=== PATIENT | female | born 1995 | race Caucasian/White ===

== ENCOUNTER 2020-04-24 10:44 | Inpatient (IN) | payer MEDICAID ==
--- NOTE | 2020-04-24 10:57 | ER Document Report ---
ED Medical Screen (RME) - General Chief Complaint: Abdominal Pain Stated Complaint: ABDOMINAL PAIN Time Seen by Provider: 04/24/20 10:53 Mode of Arrival: Ambulatory Information source: Patient Notes: 25-year-old female presents to ED for complaint of abdominal pain all the time. She states she has a history of ulcerative colitis. She states it hurts all the time but she does not have insurance and has not been able to follow-up with providers. She states she was diagnosed when she was 20 years old. At this time she does have a very high heart rate of 147. We will get EKG cardiac enz ymes as well as lipase chemistry and she will be seen by another provider. I have greeted and performed a rapid initial assessment of this patient. A comprehensive ED assessment and evaluation of the patient, analysis of test results and completion of medical decision making process will be conducted by an additional ED providers. TRAVEL OUTSIDE OF THE [place] IN LAST 30 DAYS: No - Related Data Allergies/Adverse Reactions: hydrocodone Adverse Reaction (Verified 04/24/20 18:47) Past Medical History - Past Medical History Cardiac Medical History: Denies: Hx Coronary Artery Disease, Hx Heart Attack, Hx Hypertension Pulmonary Medical History: Denies: Hx Asthma, Hx Bronchitis, Hx COPD, Hx Pneumonia, Hx Tuberculosis Neurological Medical History: Reports: Hx Migraine. Denies: Hx Cerebrovascular Accident, Hx Seizures Musculoskeltal Medical History: Denies Hx Arthritis Past Surgical History: Reports: Hx Oral Surgery, Hx Tonsillectomy. Denies: Hx Hysterectomy - Immunizations Immunizations up to date: Yes Hx Diphtheria, Pertussis, Tetanus Vaccination: Yes Physical Exam - Vital signs Vitals: Temp Pulse Resp BP Pulse Ox 101.2 F H 150 H 18 118/71 97 04/24/20 10:53 04/24/20 10:53 04/24/20 10:53 04/24/20 10:53 04/24/20 10:53 Course - Vital Signs Vital signs: Temp Pulse Resp BP Pulse Ox 98.5 F 96 16 109/65 100 04/24/20 19:38 04/24/20 19:38 04/24/20 19:38 04/24/20 19:38 04/24/20 19:38 - Laboratory Results Result Diagrams: 04/24/20 11:11 04/24/20 11:11 Laboratory Results Interpreted: 04/24/20 04/24/20 04/24/20 11:11 11:11 11:11 WBC 21.4 H Hgb 11.6 L Hct 35.9 L MCV 75 L MCH 24.2 L RDW 14.7 H Plt Count 566 H Seg Neuts % (Manual) 87 H Lymphocytes % (Manual) 6 L Abs Neuts (Manual) 19.5 H APTT 36.4 H AST 37 H Alkaline Phosphatase 134 H C-Reactive Protein Ur Leukocyte Esterase 04/24/20 04/24/20 11:11 11:20 WBC Hgb Hct MCV MCH RDW Plt Count Seg Neuts % (Manual) Lymphocytes % (Manual) Abs Neuts (Manual) APTT AST Alkaline Phosphatase C-Reactive Protein 53.1 H Ur Leukocyte Esterase TRACE H Doctor's Discharge - Discharge Clinical Impression: Ulcerative colitis Condition: Fair Disposition: ADMITTED INPATIENT
[2020-04-24] MEDS ORDERED: HYDROMORPHONE HCL INJ/PF 2 MG/ML AMPULE IV ONE ×2 (11:07→13:40)
[2020-04-24] MEDS ORDERED: ONDANSETRON HCL INJ/PF 4 MG/2 ML SDV IV ONE (11:07)
--- NOTE | 2020-04-24 11:09 | ER Document Report ---
ED General - General Chief Complaint: Abdominal Pain Stated Complaint: ABDOMINAL PAIN Time Seen by Provider: 04/24/20 10:53 Primary Care Provider: ROSA AC DO [NO LOCAL MD] - Follow up as needed Mode of Arrival: Ambulatory Notes: 25-year-old female presents with abdominal pain diffuse, worsening for the last couple days but intermittently for about a month in the setting of a known ul cerative colitis flare which she self diagnosed a month ago in the setting of not having a doctor started home prednisone got slightly better but is now not any better and worse. Increase to frequency, liquidity and scant blood. No rectal pain or tenesmus. Positive chills at home. Not eating much. TRAVEL OUTSIDE OF THE [place] IN LAST 30 DAYS: No - Related Data Allergies/Adverse Reactions: No Known Allergies Allergy (Verified 08/16/14 11:15) Past Medical History - General Information source: Patient - Social History Smoking Status: Never Smoker Family History: Reviewed & Not Pertinent - Past Medical History Cardiac Medical History: Denies: Hx Coronary Artery Disease, Hx Heart Attack, Hx Hypertension Pulmonary Medical History: Denies: Hx Asthma, Hx Bronchitis, Hx COPD, Hx Pneumonia, Hx Tuberculosis Neurological Medical History: Reports: Hx Migraine. Denies: Hx Cerebrovascular Accident, Hx Seizures Musculoskeletal Medical History: Denies Hx Arthritis Past Surgical History: Reports: Hx Oral Surgery, Hx Tonsillectomy. Denies: Hx Hysterectomy - Immunizations Immunizations up to date: Yes Hx Diphtheria, Pertussis, Tetanus Vaccination: Yes Physical Exam - Vital signs Vitals: Temp Pulse Resp BP Pulse Ox 101.2 F H 150 H 18 118/71 97 04/24/20 10:53 04/24/20 10:53 04/24/20 10:53 04/24/20 10:53 04/24/20 10:53 Course - Re-evaluation Re-evalutation: 04/24/20 11:13 Patient with uncontrolled ulcerative colitis presents with abdominal pain nausea anorexia tachycardia and fever most concerning for ulcerative colitis flare plus or minus infectious complication like an abscess or diffuse colitis Will start on antibiotics given that she is meeting sepsis criteria, will give fluid bolus pain meds Zofran check labs and do CT 04/24/20 14:37 Heart rate down with fluids. Has received antibiotics. Heart rate now 120 stil l in pain. Given second dose of Dilaudid. Labs show leukocytosis with left shift, she is on steroids but also probably acutely inflamed She will receive a second of the pain meds. Her CT is not exciting in terms of cause of her pain so we went back and discussed actually typically she has no high risk activity no dyspareunia no vaginal discharge so I think that this is not coming from PID. Awaiting urinalysis but has been covered in case is a UTI Discussed with Dr. Holly for admission. She asked that I page Dr. Avendaño given no he is not on-call but accepted the admission anyway I page Dr. Salas and never heard back. - Vital Signs Vital signs: Temp Pulse Resp BP Pulse Ox 99.2 F 150 H 23 H 106/64 99 04/24/20 11:47 04/24/20 10:53 04/24/20 14:01 04/24/20 14:00 04/24/20 14:01 - Laboratory Results Result Diagrams: 04/24/20 11:11 04/24/20 11:11 Laboratory Results Interpreted: 04/24/20 04/24/20 04/24/20 11:11 11:11 11:11 WBC 21.4 H Hgb 11.6 L Hct 35.9 L MCV 75 L MCH 24.2 L RDW 14.7 H Plt Count 566 H Seg Neuts % (Manual) 87 H Lymphocytes % (Manual) 6 L Abs Neuts (Manual) 19.5 H APTT 36.4 H AST 37 H Alkaline Phosphatase 134 H Critical Laboratory Results Reviewed: No Critical Results - Radiology Results Critical Radiology Results Reviewed: No Critical Results Critical Care Note - Critical Care Note Total time excluding time spent on procedures (mins): 32 Comments: The above patient is critically ill. Not including procedures, but including direct re-evaluations, speaking with patient and/or consultants, interpreting results, and documenting, I spent the total amount of minute listed listed above on critical care time Discharge - Discharge Clinical Impression: Ulcerative colitis Qualifiers: Ulcerative colitis location: unspecified ulcerative colitis location Digestive disease complication type: without complication Qualified Code(s): K51.90 - Ulcerative colitis, unspecified, without complications Condition: Fair Disposition: ADMITTED INPATIENT Admitting Provider: Zuly (Hospitalist) Unit Admitted: Medical Floor Forms: Return to Work Referrals: ROSA AC DO [NO LOCAL MD] - Follow up as needed
[2020-04-24] MEDS ORDERED: RINGERS SOLUTION,LACTATED 1,000 ML IV PRN (11:10)
[2020-04-24] MEDS ORDERED: PIPERACILLIN/TAZOBACTAM 3.375 GM VIAL IV ONE (11:13)
[2020-04-24 11:31] LABS: HEMATOCRIT 35.9 % (36.0-47.0); HEMOGLOBIN 11.6 g/dL (12.0-15.5); MEAN CORPUSCULAR HEMOGLOBIN 24.2 pg (27.0-33.4); MEAN CORPUSCULAR HGB CONC 32.2 g/dL (32.0-36.0); MEAN CORPUSCULAR VOLUME 75 fl (80-97); PLATELET COUNT 566 10^3/uL (150-450); RED BLOOD COUNT 4.77 10^6/uL (3.72-5.28); RED CELL DISTRIBUTION WIDTH 14.7 % (11.5-14.0); WHITE BLOOD COUNT 21.4 10^3/uL (4.0-10.5)
[2020-04-24 11:39] LABS: INTERNATIONAL RATION (INR) 1.04; PROTHROMBIN TIME 13.8 SEC (11.4-15.4)
[2020-04-24 11:40] LABS: PARTIAL THROMBOPLASTIN TIME 36.4 SEC (23.5-35.8)
[2020-04-24 11:44] LABS: ALBUMIN 4.8 g/dL (3.5-5.0); ALKALINE PHOSPHATASE 134 U/L (38-126); ANION GAP 11 (5-19); ASPARTATE AMINO TRANSFERASE 37 U/L (14-36); BILIRUBIN,DIRECT 0.2 mg/dL (0.0-0.4); BILIRUBIN,TOTAL 0.6 mg/dL (0.2-1.3); BLOOD UREA NITROGEN 12 mg/dL (7-20); CALCIUM 10.2 mg/dL (8.4-10.2); CARBON DIOXIDE 24 mmol/L (22-30); CHLORIDE 102 mmol/L (98-107); CREATINE KINASE 47 U/L (30-135); GLUCOSE 106 mg/dL (75-110); POTASSIUM 4.1 mmol/L (3.6-5.0); TOTAL PROTEIN 8.2 g/dL (6.3-8.2)
--- NOTE | 2020-04-24 12:00 | RADIOLOGY REPORT (SQ) ---
EXAM DESCRIPTION: CHEST SINGLE VIEW IMAGES COMPLETED DATE/TIME: 04/24/2020 11:53 am REASON FOR STUDY: Palpitations COMPARISON: 10/04/2013 EXAM PARAMETERS: NUMBER OF VIEWS: One view. TECHNIQUE: Single frontal radiographic view of the chest acquired. RADIATION DOSE: NA LIMITATIONS: None. FINDINGS: LUNGS AND PLEURA: No opacities, masses or pneumothorax. No pleural effusion. MEDIASTINUM AND HILAR STRUCTURES: No masses. Contour normal. HEART AND VASCULAR STRUCTURES: Heart normal in size. Normal vasculature. BONES: No acute findings. HARDWARE: None in the chest. OTHER: No other significant finding. IMPRESSION: NO ACUTE RADIOGRAPHIC FINDING IN THE CHEST. TECHNICAL DOCUMENTATION: JOB ID: [id number] 2010 [employer]- All Rights Reserved Reading location - IP/workstation name: [email or web address]
[2020-04-24 12:03] LABS: ABSOLUTE LYMPHOCYTES# (MANUAL) 1.3 10^3/uL (0.5-4.7); ABSOLUTE MONOCYTES # (MANUAL) 0.6 10^3/uL (0.1-1.4); BAND NEUTROPHILS % (MANUAL) 4 % (3-5); BASOPHILS % (MANUAL) 0 % (0-2); EOSINOPHILS % (MANUAL) 0 % (0-6); LYMPHOCYTES % (MANUAL) 6 % (13-45); MONOCYTES % (MANUAL) 3 % (3-13); SEGMENTED NEUTROPHILS % (MAN) 87 % (42-78); TOTAL CELLS COUNTED 100
[2020-04-24 12:04] LABS: PLATELET COMMENT INCREASED; RBC MORPHOLOGY COMMENT NORMO-CYTIC/CHROMIC
--- NOTE | 2020-04-24 12:56 | RADIOLOGY REPORT (SQ) ---
EXAM DESCRIPTION: CT ABD/PELVIS WITH IV ONLY IMAGES COMPLETED DATE/TIME: 04/24/2020 12:39 pm REASON FOR STUDY: ULCERATIVE COLITIS COMPARISON: 05/23/2014 TECHNIQUE: CT scan of the abdomen and pelvis performed using helical scanning technique with dynamic intravenous contrast injection. No oral contrast. Images reviewed with lung, soft tissue, and bone windows. Reconstructed coronal and sagittal MPR images reviewed. Delayed images for evaluation of the urinary system also acquired. All images stored on PACS. All CT scanners at this facility use dose modulation, iterative reconstruction, and/or weight based d osing when appropriate to reduce radiation dose to as low as reasonably achievable (ALARA). [facility]: Dose Right [facility]: CareDose [facility]: Dose Right [facility]: Teradose 4D [facility]: [place] CONTRAST TYPE AND DOSE: contrast/concentration: Isovue 350.00 mmol/ml; Total Contrast Delivered: 71. 0 ml; Total Saline Delivered: 32.6 ml RENAL FUNCTION: BUN 12; creatinine 1.08 RADIATION DOSE: CT Rad equipment meets quality standard of care and radiation dose reduction techniq ues were employed. CTDIvol: NaN - NaN mGy. DLP: 0 mGy-cm.. LIMITATIONS: None. FINDINGS: LOWER CHEST: No significant findings. No nodules or infiltrates. LIVER: Normal size. No masses. No dilated ducts. SPLEEN: Normal size. No focal lesions. PANCREAS: No masses. No significant calcifications. No adjacent inflammation or peripancreatic fluid collections. Pancreatic duct not dilated. GALLBLADDER: Surgically absent. ADRENAL GLANDS: No significant masses or asymmetry. RIGHT KIDNEY AND URETER: No solid masses. No significant calcifications. No hydronephrosis or hyd roureter. LEFT KIDNEY AND URETER: No solid masses. No significant calcifications. No hydronephrosis or hydr oureter. AORTA AND VESSELS: No aneurysm. No dissection. Renal arteries, SMA, celiac without stenosis. RETROPERITONEUM: No retroperitoneal adenopathy, hemorrhage or masses. BOWEL AND PERITONEAL CAVITY: No masses or inflammatory changes. No free fluid or peritoneal masses. APPENDIX: Normal. PELVIS: No mass. Scant physiologic free fluid is seen within the pelvic cul-de-sac. The uterus is r etroverted. The ovaries appear somewhat prominent noting a 2.9 cm ovoid focus within the left ovary demonstrating intermediate Hounsfield units, likely on the basis of a hemorrhagic cyst. ABDOMINAL WALL: No masses. No hernias. BONES: No significant or acute findings. OTHER: No other significant finding. IMPRESSION: No evidence of acute intra-abdominal infectious/inflammatory process. Incidental findin g a 2.9 cm ovoid focus within the left ovary, likely on the basis of an hemorrhagic cyst. Prominent appearance of the right ovary. Recommend dedicated pelvic ultrasound for improved characterization. TECHNICAL DOCUMENTATION: JOB ID: [id number] Quality ID # [id number]: Final reports with documentation of one or more dose reduction techniques (e.g., Au tomated exposure control, adjustment of the mA and/or kV according to patient size, use of iterative reconstruction technique) 2010 [employer]- All Rights Reserved Reading location - IP/workstation name: [email or web address]
[2020-04-24] MEDS ORDERED: RINGERS SOLUTION,LACTATED 1,000 ML IV ONE (13:41)
[2020-04-24 14:56] LABS: APPEARANCE,URINE SLIGHTLY HAZY; COLOR,URINE YELLOW
[2020-04-24 14:57] LABS: ADD MANUAL MICROSCOPIC YES; BILIRUBIN,URINE NEGATIVE (NEGATIVE); GLUCOSE, URINE NEGATIVE (NEGATIVE); KETONES,URINE NEGATIVE (NEGATIVE); LEUKOCYTE ESTERASE,URINE TRACE (NEGATIVE); NITRITE,URINE NEGATIVE (NEGATIVE); PROTEIN,URINE NEGATIVE (NEGATIVE); URINE SPECIFIC GRAVITY 1.014; UROBILINOGEN,URINE NEGATIVE mg/dL (<2.0)
[2020-04-24 14:58] LABS: RBC,URINE NONE SEEN /HPF; WBC,URINE 20-30 /HPF
[2020-04-24] MEDS ORDERED: ACETAMINOPHEN 325 MG TABLET PO PRN (15:57)
[2020-04-24] MEDS ORDERED: IPRATROPIUM/ALBUTEROL 0.5-2.5 MG/3 ML AMPUL NEB PRN (15:57)
[2020-04-24] MEDS: ONDANSETRON HCL INJ/PF 4 MG/2 ML SDV IV PRN ×2 (16:25→23:11)
--- NOTE | 2020-04-24 16:27 | PDOC H&P ---
History of Present Illness Admission Date/PCP: 04/24/20 14:55 Patient complains of: diarrhea, nausea and vomiting History of Present Illness: CAROLYN FERNANDEZ is a 25 year old female Past Medical History Cardiac Medical History: Denies: Coronary Artery Disease, Myocardial Infarction, Hypertension Pulmonary Medical History: Denies: Asthma, Bronchitis, Chronic Obstructive Pulmonary Disease (COPD), Pneumonia, Tuberculosis Neurological Medical History: Reports: Migraine Denies: Seizures GI Medical History: Reports: Crohn's Disease, Hiatal Hernia Musculoskeltal Medical History: Denies: Arthritis Psychiatric Medical History: Denies: None Hematology: Denies: Anemia Past Surgical History Past Surgical History: Reports: Cholecystectomy, Tonsillectomy Denies: Hysterectomy Social History Information Source: Patient Lives with: Family Smoking Status: Never Smoker Frequency of Alcohol Use: None Hx Recreational Drug Use: No Hx Prescription Drug Abuse: No Family History Family History: DM Parental Family History Reviewed: Yes Children Family History Reviewed: Yes Sibling(s) Family History Reviewed.: Yes Medication/Allergy Home Medications: Cholecalciferol (Vitamin D3) [Vitamin D3 1000 Unit Tablet] 1,000 unit PO DAILY 04/24/20 Iron,Carbonyl/Ascorbic Acid [Iron 100-Vitamin C Tablet] 1 tab PO DAILY 04/24/20 Loratadine [Claritin 10 mg Tablet] 10 mg PO DAILY 04/24/20 Allergies/Adverse Reactions: No Known Allergies Allergy (Verified 08/16/14 11:15) Review of Systems Constitutional: PRESENT: fever(s), weakness Eyes: ABSENT: visual disturbances Ears: ABSENT: hearing changes Nose, Mouth, and Throat: ABSENT: mouth pain, sore throat Cardiovascular: ABSENT: chest pain, dyspnea on exertion, edema Respiratory: ABSENT: cough, dyspnea Gastrointestinal: PRESENT: bloating, diarrhea, hematochezia, nausea, vomiting Genitourinary: ABSENT: dysuria Musculoskeletal: PRESENT: other - joint pains Neurological: ABSENT: numbness, paresthesias Psychiatric: ABSENT: hallucinations Physical Exam Vital Signs: Temp Pulse Resp BP Pulse Ox 98 F 150 H 19 106/72 100 04/24/20 15:39 04/24/20 10:53 04/24/20 15:39 04/24/20 15:39 04/24/20 15:39 Intake & Output 04/23/20 04/24/20 04/25/20 06:59 06:59 06:59 Intake Total 2000 Balance 1999 Weight 76.1 kg General appearance: PRESENT: no acute distress, cooperative Head exam: PRESENT: atraumatic, normocephalic Eye exam: PRESENT: EOMI, PERRLA Mouth exam: PRESENT: moist Neck exam: PRESENT: full ROM Respiratory exam: PRESENT: clear to auscultation rowdy, symmetrical, unlabored Cardiovascular exam: PRESENT: RRR, +S1, +S2 Pulses: PRESENT: +2 pedal pulses bilateral Vascular exam: PRESENT: normal capillary refill GI/Abdominal exam: PRESENT: normal bowel sounds, soft, tenderness. ABSENT: rebound Rectal exam: PRESENT: bloody stool Extremities exam: PRESENT: full ROM. ABSENT: joint swelling, pedal edema Musculoskeletal exam: PRESENT: full ROM Neurological exam: PRESENT: alert, awake, oriented to person, oriented to place, oriented to time, oriented to situation Skin exam: PRESENT: normal color Results Laboratory Results: 04/24/20 11:11 04/24/20 11:11 04/24/20 04/24/20 04/24/20 11:11 11:11 11:11 WBC 21.4 H RBC 4.77 Hgb 11.6 L Hct 35.9 L MCV 75 L MCH 24.2 L MCHC 32.2 RDW 14.7 H Plt Count 566 H Seg Neutrophils % Not Reportable Sodium 137.3 Potassium 4.1 Chloride 102 Carbon Dioxide 24 Anion Gap 11 BUN 12 Creatinine 1.08 Est GFR ( Amer) > 60 Glucose 106 Lactic Acid Calcium 10.2 Magnesium 1.8 Total Bilirubin 0.6 AST 37 H Alkaline Phosphatase 134 H Total Protein 8.2 Albumin 4.8 Lipase 46.3 TSH 1.00 Serum HCG, Qual Urine Color Urine Appearance Urine pH Ur Specific [place] Urine Protein Urine Glucose (UA) Urine Ketones Urine Blood Urine Nitrite Ur Leukocyte Esterase Ur Squamous Epith Cells 04/24/20 04/24/20 04/24/20 11:11 11:20 11:20 WBC RBC Hgb Hct MCV MCH MCHC RDW Plt Count Seg Neutrophils % Sodium Potassium Chloride Carbon Dioxide Anion Gap BUN Creatinine Est GFR ( Amer) Glucose Lactic Acid 0.8 Calcium Magnesium Total Bilirubin AST Alkaline Phosphatase Total Protein Albumin Lipase TSH Cancelled Serum HCG, Qual NEGATIVE Urine Color Urine Appearance Urine pH Ur Specific [place] Urine Protein Urine Glucose (UA) Urine Ketones Urine Blood Urine Nitrite Ur Leukocyte Esterase Ur Squamous Epith Cells 04/24/20 11:20 WBC RBC Hgb Hct MCV MCH MCHC RDW Plt Count Seg Neutrophils % Sodium Potassium Chloride Carbon Dioxide Anion Gap BUN Creatinine Est GFR ( Amer) Glucose Lactic Acid Calcium Magnesium Total Bilirubin AST Alkaline Phosphatase Total Protein Albumin Lipase TSH Serum HCG, Qual Urine Color YELLOW Urine Appearance SLIGHTLY HAZY Urine pH 5.0 Ur Specific [place] 1.014 Urine Protein NEGATIVE Urine Glucose (UA) NEGATIVE Urine Ketones NEGATIVE Urine Blood NEGATIVE Urine Nitrite NEGATIVE Ur Leukocyte Esterase TRACE H Ur Squamous Epith Cells MANY 04/24/20 11:11 Creatine Kinase 47 Impressions: Chest X-Ray 04/24/20 10:53 IMPRESSION: NO ACUTE RADIOGRAPHIC FINDING IN THE CHEST. Abdomen/Pelvis CT 04/24/20 11:12 IMPRESSION: No evidence of acute intra-abdominal infectious/inflammatory process. Incidental finding a 2.9 cm ovoid focus within the left ovary, likely on the basis of an hemorrhagic cyst. Prominent appearance of the right ovary. Recommend dedicated pelvic ultrasound for improved characterization. Assessment and Plan - Diagnosis (1) Ulcerative colitis Qualifiers: Ulcerative colitis location: unspecified ulcerative colitis location Digestive disease complication type: without complication Qualified Code(s): K51.90 - Ulcerative colitis, unspecified, without complications Is this a current diagnosis for this admission?: Yes Plan: - diagnosed case of UC not on any treatment coming in due to fever, abdominal pain and 14x diarrhea/day - also with arthralgia and occasional bloody stools - WBC 21 - Hct 35.9, Hgb 11.6 - Awaiting ESR and CRP, c.diff - CT abdomen no focal inflammation - Crohn's severity score shows active disease - will start mesalamine rectal enema - solumedrol IV for now then will likely be discharged on oral prednisone taper - IV cipro and flagyl - supportive treatment with IV fluids - she would need a PCP and gastro ff up on discahrge however she has no insurance (2) Leukocytosis Qualifiers: Leukocytosis type: unspecified Qualified Code(s): D72.829 - Elevated white blood cell count, unspecified Is this a current diagnosis for this admission?: Yes Plan: - WBC 21 - likely 2/2 to UC flare - CT abdomen no focal inflammation - on cipro and flagyl - ctm (3) Diarrhea Qualifiers: Diarrhea type: unspecified type Qualified Code(s): R19.7 - Diarrhea, unspecified Is this a current diagnosis for this admission?: Yes Plan: - 14/day of diarrhea - 2/2 UC - started on mesalamine and steroids - will start loperamide once c diff is back (4) Nausea & vomiting Qualifiers: Vomiting Intractability: non-intractable Is this a current diagnosis for this admission?: Yes Plan: - 2/2 UC - on zofran - Time Time Spent with patient: 25-34 minutes Medications reviewed and adjusted accordingly: Yes Anticipated Discharge Disposition: Home, Self Care Anticipated Discharge Timeframe: TBD
[2020-04-24] MEDS: KETOROLAC TROMETHAMINE INJ/PF 30 MG/1 ML SDV IV SCH ×2 (18:24→23:10)
[2020-04-24] MEDS: RINGERS SOLUTION,LACTATED 1,000 ML IV PRN (18:25)
[2020-04-24] MEDS: METRONIDAZOLE 500 MG/NS RTU 500 MG/100 ML RTUPB IV SCH ×2 (18:28→23:11)
[2020-04-24] MEDS: MESALAMINE 4 GM/60 ML ENEMA PR SCH (18:30)
--- NOTE | 2020-04-24 18:45 | EKG REPORT ---
SEVERITY:- BORDERLINE ECG - SINUS TACHYCARDIA INFERIOR Q WAVES, PROBABLY NORMAL VARIATION BORDERLINE T WAVE ABNORMALITIES : Confirmed by: Torsten Nguyen 24-Apr-2020 18:44:39
[2020-04-24] MEDS: METHYLPREDNISOLONE INJ 40 MG/1 ML SDV IV SCH (21:39)
[2020-04-24] MEDS: CIPROFLOXACIN 400 MG/D5W RTU 400 MG/200 ML RTUPB IV SCH (21:40)
[2020-04-25 02:42] LABS: C DIFFICILE GDH NEGATIVE (NEGATIVE)
[2020-04-25] MEDS: METRONIDAZOLE 500 MG/NS RTU 500 MG/100 ML RTUPB IV SCH ×3 (05:30→17:57)
[2020-04-25] MEDS: KETOROLAC TROMETHAMINE INJ/PF 30 MG/1 ML SDV IV SCH ×4 (05:30→23:11)
[2020-04-25] MEDS: ONDANSETRON HCL INJ/PF 4 MG/2 ML SDV IV PRN ×3 (05:30→18:41)
[2020-04-25] MEDS: RINGERS SOLUTION,LACTATED 1,000 ML IV PRN ×2 (05:31→18:41)
[2020-04-25 05:41] LABS: ABSOLUTE LYMPHOCYTES (AUTO) 0.6 10^3/uL (0.5-4.7); ABSOLUTE MONOCYTES (AUTO) 0.1 10^3/uL (0.1-1.4); BASOPHILS % (AUTO) 0.1 % (0-2); HEMATOCRIT 32.1 % (36.0-47.0); HEMOGLOBIN 10.7 g/dL (12.0-15.5); LYMPHOCYTES % (AUTO) 6.3 % (13-45); MEAN CORPUSCULAR HEMOGLOBIN 25.4 pg (27.0-33.4); MEAN CORPUSCULAR HGB CONC 33.4 g/dL (32.0-36.0); MEAN CORPUSCULAR VOLUME 76 fl (80-97); MONOCYTES % (AUTO) 1.4 % (3-13); PLATELET COUNT 462 10^3/uL (150-450); RED BLOOD COUNT 4.21 10^6/uL (3.72-5.28); SEGMENTED NEUTROPHILS % (AUTO) 92.2 % (42-78); TOTAL CELLS COUNTED % (AUTO) 100 %; WHITE BLOOD COUNT 9.7 10^3/uL (4.0-10.5)
[2020-04-25 05:52] LABS: ALKALINE PHOSPHATASE 96 U/L (38-126); ANION GAP 9 (5-19); ASPARTATE AMINO TRANSFERASE 20 U/L (14-36); BILIRUBIN,DIRECT 0.2 mg/dL (0.0-0.4); BILIRUBIN,TOTAL 0.4 mg/dL (0.2-1.3); BLOOD UREA NITROGEN 11 mg/dL (7-20); CALCIUM 9.4 mg/dL (8.4-10.2); CARBON DIOXIDE 26 mmol/L (22-30); CHLORIDE 103 mmol/L (98-107); GLUCOSE 134 mg/dL (75-110); POTASSIUM 4.6 mmol/L (3.6-5.0); TOTAL PROTEIN 6.8 g/dL (6.3-8.2)
[2020-04-25] MEDS: METHYLPREDNISOLONE INJ 40 MG/1 ML SDV IV SCH ×2 (09:12→23:12)
[2020-04-25] MEDS: LORATADINE 10 MG TABLET PO SCH (11:11)
[2020-04-25] MEDS: ENOXAPARIN SODIUM INJ 40 MG/0.4 ML DISP.SYRIN SUBCUT SCH (11:12)
[2020-04-25] MEDS: CIPROFLOXACIN 400 MG/D5W RTU 400 MG/200 ML RTUPB IV SCH ×2 (11:13→23:11)
[2020-04-25] MEDS: MESALAMINE 4 GM/60 ML ENEMA PR SCH (11:15)
[2020-04-25] MEDS ORDERED: LOPERAMIDE HCL 2 MG CAPSULE PO PRN (20:56)
--- NOTE | 2020-04-25 20:57 | PDOC PROGRESS REPORT ---
Subjective Date:: 04/25/20 Subjective:: CAROLYN FERNANDEZ is a 25 year old female, past medical history of Ulcerative co litis not on treatment, history of hiatal hernia, who came in the ED today due to diarrhea and abdominal pain with fever. Patient has been having on and off episodes of diarrhea about 14 episodes per day with several of them having minimal blood. She is also been having arthralgia at least the past 4 weeks and mild abdominal pain. However since yesterday her abdominal pain worsened and she developed a fever of 105 with associated nausea and vomiting prompting consult. Her last admission for altered ulcerative colitis flare was about a year ago and she is not currently on any maintenance treatment for her Ulcerative colitis disease. She has not seen a underwriting technician for years and also has not seen a primary care physician as she currently does not have any insurance. According to the patient she has tried taking some leftover prednisone from her previous prescription a few weeks ago and this mildly improved her symptoms. In the emergency room blood pressure was 118/71, heart rate of 102, respiratory rate of 16, temperature 88 degrees, O2 sat 99% on room air. CBC showed WBC count of 21, hemoglobin of 11.6, platelet 566. CMP showed normal sodium potassium and creatinine. CRP 53.[address] abdomen and pelvis with IV contrast did not show any evidence of acute intra-abdominal infection. Incidental finding of 2.9 cm ovoid focus within the left ovary likely on the basis of a hemorrhagic cyst. Hospitalist service was called to evaluate patient. D2 Hospital stay. Patient was seen and examined at bedside. She is still having diarrhea but reports that nausea is much better and she has not spiked a fever since being admitted. Discussed the plan of care with the patient. we will continue with mesalamine enema, abx and IV steroids and transition her to oral treatments once she is more stable. Reason For Visit: ULCERATIVE COLITIS Physical Exam Vital Signs: Temp Pulse Resp BP Pulse Ox 97.5 F 76 16 98/54 L 97 04/25/20 20:00 04/25/20 20:00 04/25/20 20:00 04/25/20 20:00 04/25/20 20:00 Intake & Output 04/24/20 04/25/20 04/26/20 06:59 06:59 06:59 Intake Total 4502 1775 Balance 4502 1775 Weight 53.5 kg General appearance: PRESENT: no acute distress, cooperative Head exam: PRESENT: atraumatic, normocephalic Eye exam: PRESENT: EOMI, PERRLA Mouth exam: PRESENT: moist Neck exam: PRESENT: full ROM Respiratory exam: PRESENT: clear to auscultation rowdy, symmetrical, unlabored Cardiovascular exam: PRESENT: RRR, +S1, +S2 GI/Abdominal exam: PRESENT: normal bowel sounds, soft. ABSENT: rebound, tenderness Extremities exam: PRESENT: full ROM Musculoskeletal exam: PRESENT: full ROM Neurological exam: PRESENT: alert, awake, oriented to person, oriented to place, oriented to time, oriented to situation Psychiatric exam: PRESENT: normal mood Skin exam: PRESENT: normal color Results Laboratory Results: 04/25/20 05:02 04/25/20 05:02 04/25/20 04/25/20 05:02 05:02 WBC 9.7 RBC 4.21 Hgb 10.7 L Hct 32.1 L MCV 76 L MCH 25.4 L MCHC 33.4 RDW 15.0 H Plt Count 462 H Seg Neutrophils % 92.2 H Sodium 137.5 Potassium 4.6 Chloride 103 Carbon Dioxide 26 Anion Gap 9 BUN 11 Creatinine 0.97 Est GFR ( Amer) > 60 Glucose 134 H Calcium 9.4 Total Bilirubin 0.4 AST 20 Alkaline Phosphatase 96 Total Protein 6.8 Albumin 4.0 04/24/20 11:11 Creatine Kinase 47 Impressions: Chest X-Ray 04/24/20 10:53 IMPRESSION: NO ACUTE RADIOGRAPHIC FINDING IN THE CHEST. Abdomen/Pelvis CT 04/24/20 11:12 IMPRESSION: No evidence of acute intra-abdominal infectious/inflammatory process. Incidental finding a 2.9 cm ovoid focus within the left ovary, likely on the basis of an hemorrhagic cyst. Prominent appearance of the right ovary. Recommend dedicated pelvic ultrasound for improved characterization. Assessment and Plan - Diagnosis (1) Ulcerative colitis Qualifiers: Ulcerative colitis location: unspecified ulcerative colitis location Digestive disease complication type: without complication Qualified Code(s): K51.90 - Ulcerative colitis, unspecified, without complications Is this a current diagnosis for this admission?: Yes Plan: - diagnosed case of UC not on any treatment coming in due to fever, abdominal pain and 14x diarrhea/day - also with arthralgia and occasional bloody stools - WBC 21>9.7 - Hct 35.9, Hgb 11.6 - ESR 45 and CRP 51 both elevated , c.diff negative - CT abdomen no focal inflammation - moderate to severe disease activity - continue mesalamine enema - solumedrol IV for now then will likely be discharged on oral prednisone taper - IV cipro and flagyl - supportive treatment with IV fluids - she would need a PCP and gastro ff up on discharge however she has no insurance (2) Leukocytosis Qualifiers: Leukocytosis type: unspecified Qualified Code(s): D72.829 - Elevated white blood cell count, unspecified Is this a current diagnosis for this admission?: Yes Plan: - WBC 21 - likely 2/2 to UC flare - CT abdomen no focal inflammation - on cipro and flagyl - ctm (3) Diarrhea Qualifiers: Diarrhea type: unspecified type Qualified Code(s): R19.7 - Diarrhea, unspecified Is this a current diagnosis for this admission?: Yes Plan: - 14/day of diarrhea - 2/2 UC - started on mesalamine and steroids - will start loperamide once c diff is back (4) Nausea & vomiting Qualifiers: Vomiting Intractability: non-intractable Is this a current diagnosis for this admission?: Yes Plan: - 2/2 UC - on zofran - Time Time Spent with patient: 25-34 minutes Medications reviewed and adjusted accordingly: Yes Anticipated Discharge Disposition: Home, Self Care Anticipated Discharge Timeframe: TBD
[2020-04-26] MEDS: METRONIDAZOLE 500 MG/NS RTU 500 MG/100 ML RTUPB IV SCH ×3 (00:34→12:22)
[2020-04-26 05:58] LABS: ABSOLUTE LYMPHOCYTES (AUTO) 0.9 10^3/uL (0.5-4.7); ABSOLUTE MONOCYTES (AUTO) 0.4 10^3/uL (0.1-1.4); BASOPHILS % (AUTO) 0.2 % (0-2); HEMATOCRIT 29.3 % (36.0-47.0); HEMOGLOBIN 9.4 g/dL (12.0-15.5); LYMPHOCYTES % (AUTO) 8.7 % (13-45); MEAN CORPUSCULAR HEMOGLOBIN 24.7 pg (27.0-33.4); MEAN CORPUSCULAR HGB CONC 32.2 g/dL (32.0-36.0); MEAN CORPUSCULAR VOLUME 77 fl (80-97); PLATELET COUNT 430 10^3/uL (150-450); RED BLOOD COUNT 3.82 10^6/uL (3.72-5.28); RED CELL DISTRIBUTION WIDTH 15.1 % (11.5-14.0); SEGMENTED NEUTROPHILS % (AUTO) 87.1 % (42-78); TOTAL CELLS COUNTED % (AUTO) 100 %; WHITE BLOOD COUNT 10.4 10^3/uL (4.0-10.5)
[2020-04-26] MEDS: KETOROLAC TROMETHAMINE INJ/PF 30 MG/1 ML SDV IV SCH ×2 (06:04→12:24)
[2020-04-26] MEDS: RINGERS SOLUTION,LACTATED 1,000 ML IV PRN (06:05)
[2020-04-26] MEDS: ONDANSETRON HCL INJ/PF 4 MG/2 ML SDV IV PRN (06:14)
[2020-04-26 06:20] LABS: ALBUMIN 3.5 g/dL (3.5-5.0); ALKALINE PHOSPHATASE 82 U/L (38-126); ANION GAP 7 (5-19); ASPARTATE AMINO TRANSFERASE 14 U/L (14-36); BILIRUBIN,DIRECT 0.2 mg/dL (0.0-0.4); BILIRUBIN,TOTAL 0.2 mg/dL (0.2-1.3); BLOOD UREA NITROGEN 13 mg/dL (7-20); C-REACTIVE PROTEIN 50.6 mg/L (<10.0); CALCIUM 9.1 mg/dL (8.4-10.2); CARBON DIOXIDE 25 mmol/L (22-30); CHLORIDE 106 mmol/L (98-107); GLUCOSE 137 mg/dL (75-110); POTASSIUM 4.4 mmol/L (3.6-5.0); TOTAL PROTEIN 6.2 g/dL (6.3-8.2)
[2020-04-26 06:36] LABS: ERYTHROCYTE SEDIMENTATION RATE 48 mm/hr (0-20)
[2020-04-26] MEDS: LORATADINE 10 MG TABLET PO SCH (10:18)
[2020-04-26] MEDS: METHYLPREDNISOLONE INJ 40 MG/1 ML SDV IV SCH (10:19)
[2020-04-26] MEDS: MESALAMINE 4 GM/60 ML ENEMA PR SCH (10:20)
[2020-04-26] MEDS: CIPROFLOXACIN 400 MG/D5W RTU 400 MG/200 ML RTUPB IV SCH (10:21)
[2020-04-26] MEDS: ENOXAPARIN SODIUM INJ 40 MG/0.4 ML DISP.SYRIN SUBCUT SCH (10:21)
--- NOTE | 2020-04-26 12:34 | PDOC DISCHARGE SUMMARY ---
Impression - Admit/DC Date/PCP Admission Date/Primary Care Provider: 04/24/20 14:55 Discharge Date: 04/26/20 - Discharge Diagnosis (1) Exacerbation of ulcerative colitis Is this a current diagnosis for this admission?: Yes (2) Fever Is this a current diagnosis for this admission?: Yes (3) SIRS (systemic inflammatory response syndrome) Is this a current diagnosis for this admission?: Yes (4) Diarrhea Is this a current diagnosis for this admission?: Yes (5) Leukocytosis Is this a current diagnosis for this admission?: Yes (6) Nausea & vomiting Is this a current diagnosis for this admission?: Yes - Additional Information Discharge Diet: Other (Comments) - FODMAP Diet Discharge Activity: Activity As Tolerated Referrals: [facility] [Provider Group] - 05/02/20 11:00 am (Appointment is with Dr. Sales) MAC AVENDAÑO MD [ACTIVE STAFF] - Prescriptions: Dicyclomine HCl [Bentyl 20 mg Tablet] 20 mg PO TIDP PRN #20 tablet PRN Reason: Prednisone [Deltasone 5 mg Tablet] See Protocol PO BID #175 tablet Mesalamine [Lialda] 1.2 gm PO QID 30 Days tablet. Mesalamemily [Rowasa 4 gm/60 ml Enema] 4 gm MS DAILY 30 Days #30 enema Home Medications: Cholecalciferol (Vitamin D3) [Vitamin D3 1000 Unit Tablet] 1,000 unit PO DAILY 04/24/20 Iron,Carbonyl/Ascorbic Acid [Iron 100-Vitamin C Tablet] 1 tab PO DAILY 04/24/20 Loratadine [Claritin 10 mg Tablet] 10 mg PO DAILY 04/24/20 Dicyclomine HCl [Bentyl 20 mg Tablet] 20 mg PO TIDP PRN #20 tablet 04/26/20 Mesalamine [Lialda] 1.2 gm PO QID 30 Days tablet. 04/26/20 Mesalamine [Rowasa 4 gm/60 ml Enema] 4 gm MS DAILY 30 Days #30 enema 04/26/20 Prednisone [Deltasone 5 mg Tablet] See Protocol PO BID #175 tablet 04/26/20 History of Present Illiness History of Present Illness: According to admitting provider: CAROLYN FERNANDEZ is a 25 year old female, past medical history of Ulcerative colitis not on treatment, history of hiatal hernia, who came in the ED today due to diarrhea and abdominal pain with fever. Patient has been having on and off episodes of diarrhea about 14 episodes per day with several of them having minimal blood. She is also been having arthralgia at least the past 4 weeks and mild abdominal pain. However since yesterday her abdominal pain worsened and she developed a fever of 105 with associated nausea and vomiting prompting consult. Her last admission for altered ulcerative colitis flare was about a year ago and she is not currently on any maintenance treatment for her Ulcerative colitis disease. She has not seen a clean room assembler for years and also has not seen a primary care physician as she currently does not have any insurance. According to the patient she has tried taking some leftover prednisone from her previous prescription a few weeks ago and this mildly improved her symptoms. In the emergency room blood pressure was 118/71, heart rate of 102, respiratory rate of 16, temperature 88 degrees, O2 sat 99% on room air. CBC showed WBC count of 21, hemoglobin of 11.6, platelet 566. CMP showed normal sodium potassium and creatinine. CRP 53.[address] abdomen and pelvis with IV contrast did not show any evidence of acute intra-abdominal infection. Incidental finding of 2.9 cm ovoid focus within the left ovary likely on the basis of a hemorrhagic cyst. Hospitalist service was called to evaluate patient. Hospital Course Hospital Course: Patient was admitted to the hospital with complaints of diarrhea, fever as well as some arthralgias. In the ER she was noted to have SIRS with fever of 101, severe leukocytosis of 21K. She also had abdominal cramping. She did receive antibiotics while in the hospital. Abdominal CT was done which did not show anything remarkable besides incidental finding of ovarian cyst. Given her constellation of symptoms, she was thought to be having another ulcerative colitis acute exacerbation. Actually more like acute on chronic especially since has been going on for a few months now. Unfortunately, she has not been able to see In the past year or so. She used to take Lialda in the past. She was diagnosed with ulcerative colitis [place] [address] Avendaño at which time a colonoscopy revealed borges ulcerative colitis throughout the large intestine. In the hospital this time around, patient was given antibiotics, Solu-Medrol and mesalamine enema. She was also given IV fluids. Symptoms have improved since then. She is still having several episodes of diarrhea but has improved since presentation. SIRS has resolved. C diff is negative. No current evidence of other complications. She never has any hematochezia according to her. Her current flare does seem similar to her past flares. She also complains of abdominal cramping. She has been tolerating her diet adequately. I have discussed to her about looking into FODMAP diet. I will be discharging her home on a regimen of mesalamine oral plus retention enema combination therapy as well as a brief slow taper of prednisone. Have encouraged her to follow-up with her prior clean room assembler Dr. Avendaño. Physical Exam Vital Signs: Temp Pulse Resp BP Pulse Ox 97.4 F 71 16 113/68 98 04/26/20 11:58 04/26/20 11:58 04/26/20 11:58 04/26/20 11:58 04/26/20 11:58 Intake & Output 04/25/20 04/26/20 04/27/20 06:59 06:59 06:59 Intake Total 4502 3895 890 Balance 4502 3895 890 Weight 53.5 kg 52.2 kg General appearance: PRESENT: no acute distress, cooperative Neck exam: ABSENT: JVD Respiratory exam: PRESENT: unlabored. ABSENT: accessory muscle use, retraction Cardiovascular exam: ABSENT: tachycardia GI/Abdominal exam: PRESENT: normal bowel sounds, soft. ABSENT: distended, firm, guarding, rebound, rigid, tenderness Extremities exam: ABSENT: pedal edema Musculoskeletal exam: PRESENT: ambulatory Neurological exam: PRESENT: alert, awake, oriented to person, oriented to place, oriented to time, oriented to situation Results Laboratory Results: WBC 10.4 10^3/uL (4.0-10.5) 04/26/20 05:27 RBC 3.82 10^6/uL (3.72-5.28) 04/26/20 05:27 Hgb 9.4 g/dL (12.0-15.5) L 04/26/20 05:27 Hct 29.3 % (36.0-47.0) L 04/26/20 05:27 MCV 77 fl (80-97) L 04/26/20 05:27 MCH 24.7 pg (27.0-33.4) L 04/26/20 05:27 MCHC 32.2 g/dL (32.0-36.0) 04/26/20 05:27 RDW 15.1 % (11.5-14.0) H 04/26/20 05:27 Plt Count 430 10^3/uL (150-450) 04/26/20 05:27 Lymph % (Auto) 8.7 % (13-45) L 04/26/20 05:27 [place] % (Auto) 4.0 % (3-13) 04/26/20 05:27 Eos % (Auto) 0.0 % (0-6) 04/26/20 05:27 Baso % (Auto) 0.2 % (0-2) 04/26/20 05:27 Absolute Neuts (auto) 9.0 10^3/uL (1.7-8.2) H 04/26/20 05:27 Absolute Lymphs (auto) 0.9 10^3/uL (0.5-4.7) 04/26/20 05:27 Absolute Monos (auto) 0.4 10^3/uL (0.1-1.4) 04/26/20 05:27 Absolute Eos (auto) 0.0 10^3/uL (0.0-0.6) 04/26/20 05:27 Absolute Basos (auto) 0.0 10^3/uL (0.0-0.2) 04/26/20 05:27 Total Counted 100 04/24/20 11:11 Seg Neutrophils % 87.1 % (42-78) H 04/26/20 05:27 Seg Neuts % (Manual) 87 % (42-78) H 04/24/20 11:11 Band Neutrophils % 4 % (3-5) 04/24/20 11:11 Lymphocytes % (Manual) 6 % (13-45) L 04/24/20 11:11 Monocytes % (Manual) 3 % (3-13) 04/24/20 11:11 Eosinophils % (Manual) 0 % (0-6) 04/24/20 11:11 Basophils % (Manual) 0 % (0-2) 04/24/20 11:11 Abs Neuts (Manual) 19.5 10^3/uL (1.7-8.2) H 04/24/20 11:11 Abs Lymphs (Manual) 1.3 10^3/uL (0.5-4.7) 04/24/20 11:11 Abs Monocytes (Manual) 0.6 10^3/uL (0.1-1.4) 04/24/20 11:11 Absolute Eos (Manual) 0.0 10^3/uL (0.0-0.6) 04/24/20 11:11 Abs Basophils (Manual) 0.0 10^3/uL (0.0-0.2) 04/24/20 11:11 Platelet Comment INCREASED 04/24/20 11:11 RBC Morph Comment NORMO-CYTIC/CHROMIC 04/24/20 11:11 ESR 48 mm/hr (0-20) H 04/26/20 05:27 PT 13.8 SEC (11.4-15.4) 04/24/20 11:11 INR 1.04 04/24/20 11:11 APTT 36.4 SEC (23.5-35.8) H 04/24/20 11:11 Sodium 138.4 mmol/L (137-145) 04/26/20 05:27 Potassium 4.4 mmol/L (3.6-5.0) 04/26/20 05:27 Chloride 106 mmol/L (98-107) 04/26/20 05:27 Carbon Dioxide 25 mmol/L (22-30) 04/26/20 05:27 Anion Gap 7 (5-19) 04/26/20 05:27 BUN 13 mg/dL (7-20) 04/26/20 05:27 Creatinine 1.03 mg/dL (0.52-1.25) 04/26/20 05:27 Est GFR ( Amer) > 60 (>60) 04/26/20 05:27 Est GFR (MDRD) Non-Af > 60 (>60) 04/26/20 05:27 Glucose 137 mg/dL (75-110) H 04/26/20 05:27 Lactic Acid 0.8 mmol/L (0.7-2.1) 04/24/20 11:20 Calcium 9.1 mg/dL (8.4-10.2) 04/26/20 05:27 Magnesium 1.8 mg/dL (1.6-2.3) 04/24/20 11:11 Total Bilirubin 0.2 mg/dL (0.2-1.3) 04/26/20 05:27 Direct Bilirubin 0.2 mg/dL (0.0-0.4) 04/26/20 05:27 Neonat Total Bilirubin Not Reportable 04/26/20 05:27 Neonat Direct Bilirubin Not Reportable 04/26/20 05:27 Neonat Indirect Bili Not Reportable 04/26/20 05:27 AST 14 U/L (14-36) 04/26/20 05:27 ALT 19 U/L (<35) 04/26/20 05:27 Alkaline Phosphatase 82 U/L (38-126) 04/26/20 05:27 Creatine Kinase 47 U/L (30-135) 04/24/20 11:11 C-Reactive Protein 50.6 mg/L (<10.0) H 04/26/20 05:27 Total Protein 6.2 g/dL (6.3-8.2) L 04/26/20 05:27 Albumin 3.5 g/dL (3.5-5.0) 04/26/20 05:27 Lipase 46.3 U/L (23-300) 04/24/20 11:11 TSH Cancelled 04/24/20 11:20 Serum HCG, Qual NEGATIVE (NEGATIVE) 04/24/20 11:11 Urine Color YELLOW 04/24/20 11:20 Urine Appearance SLIGHTLY HAZY 04/24/20 11:20 Urine pH 5.0 (5.0-9.0) 04/24/20 11:20 Ur Specific [place] 1.014 04/24/20 11:20 Urine Protein NEGATIVE mg/dL (NEGATIVE) 04/24/20 11:20 Urine Glucose (UA) NEGATIVE mg/dL (NEGATIVE) 04/24/20 11:20 Urine Ketones NEGATIVE mg/dL (NEGATIVE) 04/24/20 11:20 Urine Blood NEGATIVE (NEGATIVE) 04/24/20 11:20 Urine Nitrite NEGATIVE (NEGATIVE) 04/24/20 11:20 Urine Bilirubin NEGATIVE (NEGATIVE) 04/24/20 11:20 Urine Urobilinogen NEGATIVE mg/dL (<2.0) 04/24/20 11:20 Ur Leukocyte Esterase TRACE (NEGATIVE) H 04/24/20 11:20 Urine RBC NONE SEEN /HPF 04/24/20 11:20 Urine WBC 20-30 /HPF 04/24/20 11:20 Ur Squamous Epith Cells MANY /HPF 04/24/20 11:20 Urine Ascorbic Acid NEGATIVE (NEGATIVE) 04/24/20 11:20 Stl C. Difficile GDH Ag NEGATIVE (NEGATIVE) 04/24/20 23:38 Stl C.difficile Tox A&B NEGATIVE (NEGATIVE) 04/24/20 23:38 Impressions: Chest X-Ray 04/24/20 10:53 IMPRESSION: NO ACUTE RADIOGRAPHIC FINDING IN THE CHEST. Abdomen/Pelvis CT 04/24/20 11:12 IMPRESSION: No evidence of acute intra-abdominal infectious/inflammatory process. Incidental finding a 2.9 cm ovoid focus within the left ovary, likely on the basis of an hemorrhagic cyst. Prominent appearance of the right ovary. Recommend dedicated pelvic ultrasound for improved characterization. Plan Time Spent: Greater than 30 Minutes Stroke Is this a Stroke Patient?: No Acute Heart Failure Is this a Heart Failure Patient?: No
[2020-04-26 13:28] VITALS: BP 126/71
== END 2020-04-26 14:39 | disposition home or self-care (01) | DRG 386 ==
LOC: ER 10:44 → EH 14:55 → 4S 16:42
PROVIDERS: ADMIT Internal Medicine; ATTEND Internal Medicine
DX: K51.90 Ulcerative colitis, unspecified, without complications (principal); R65.10 Systemic inflammatory response syndrome (SIRS) of non-infectious origin without acute organ dysfunction; R50.9 Fever, unspecified; R19.7 Diarrhea, unspecified; D72.829 Elevated white blood cell count, unspecified; Z20.828 Contact with and (suspected) exposure to other viral communicable diseases; R11.2 Nausea with vomiting, unspecified; Z90.49 Acquired absence of other specified parts of digestive tract; Z87.19 Personal history of other diseases of the digestive system; Z79.899 Other long term (current) drug therapy
CPT/HCPCS: 36415; 71045; 74177; 80053; 81001; 82550; 83605; 83690; 83735; 84443; 84703; 85025; 85610; 85652; 85730; 86140; 87040; 87324; 87449; 87635; 93005; 93010; 96361; 96365; 96375; 96376; 99285; C9803; J0744; J1170; J1650; J1885; J2405; J2543; J2920; J3490; J7120

== ENCOUNTER 2020-05-17 17:38 | Emergency (ER) | payer MEDICAID ==
[2020-05-17] MEDS ORDERED: ONDANSETRON HCL INJ/PF 4 MG/2 ML SDV IV ONE (18:43)
[2020-05-17] MEDS ORDERED: RINGERS SOLUTION,LACTATED 1,000 ML IV ONE (18:43)
--- NOTE | 2020-05-17 18:48 | ER Document Report ---
ED Medical Screen (RME) - General Stated Complaint: VOMITTING NEW MEDICATION Time Seen by Provider: 05/17/20 18:35 Mode of Arrival: Ambulatory Notes: Presents complaining of abdominal pain for the past week with nausea vomiting and diarrhea. Patient was seen recently at [facility] and diagnosed with an ulcerative colitis flareup and placed on Cipro and Flagyl. Patient states that her pain symptoms have persisted and she has been unable to keep her medications down due to her vomiting. Patient denies any blood in her stool. Complains of generalized abdominal tenderness. Patient denies any concerns about Covid and had a negative Covid test. I have greeted and performed a rapid initial assessment of this patient. A comprehensive ED assessment and evaluation of the patient, analysis of test results and completion of the medical decision making process will be conducted by additional ED providers. TRAVEL OUTSIDE OF THE [place] IN LAST 30 DAYS: No - Related Data Allergies/Adverse Reactions: hydrocodone Adverse Reaction (Verified 04/24/20 18:47) Past Medical History - Past Medical History Cardiac Medical History: Denies: Hx Coronary Artery Disease, Hx Heart Attack, Hx Hypertension Pulmonary Medical History: Denies: Hx Asthma, Hx Bronchitis, Hx COPD, Hx Pneumonia, Hx Tuberculosis Neurological Medical History: Reports: Hx Migraine. Denies: Hx Cerebrovascular Accident, Hx Seizures GI Medical History: Reports: Hx Crohn's Disease, Hx Hiatal Hernia Musculoskeltal Medical History: Denies Hx Arthritis Psychiatric Medical History: Denies: Hx Depression Past Surgical History: Reports: Hx Cholecystectomy, Hx Oral Surgery, Hx Tonsillectomy. Denies: Hx Hysterectomy - Immunizations Immunizations up to date: Yes Hx Diphtheria, Pertussis, Tetanus Vaccination: Yes Physical Exam - Vital signs Vitals: Temp Pulse Resp BP Pulse Ox 98.6 F 138 H 20 122/91 H 95 05/17/20 18:00 05/17/20 18:05/17/20 18:05/17/20 18:05/17/20 18:00 - Cardiovascular Rhythm: Tachycardia Heart sounds: S1 appreciated, S2 appreciated - Abdominal Tenderness: Tender - Generalized abdomen Course - Vital Signs Vital signs: Temp Pulse Resp BP Pulse Ox 98.6 F 138 H 20 122/91 H 95 05/17/20 18:00 05/17/20 18:00 05/17/20 18:05/17/20 18:05/17/20 18:00
[2020-05-17 19:46] LABS: ABSOLUTE EOSINOPHILS # (AUTO) 0.1 10^3/uL (0.0-0.6); ABSOLUTE LYMPHOCYTES (AUTO) 1.7 10^3/uL (0.5-4.7); ABSOLUTE NEUT (AUTO) 13.1 10^3/uL (1.7-8.2); BASOPHILS % (AUTO) 0.2 % (0-2); EOSINOPHILS % (AUTO) 0.8 % (0-6); HEMATOCRIT 38.6 % (36.0-47.0); HEMOGLOBIN 12.8 g/dL (12.0-15.5); LYMPHOCYTES % (AUTO) 10.6 % (13-45); MEAN CORPUSCULAR HEMOGLOBIN 24.9 pg (27.0-33.4); MEAN CORPUSCULAR HGB CONC 33.2 g/dL (32.0-36.0); MEAN CORPUSCULAR VOLUME 75 fl (80-97); MONOCYTES % (AUTO) 6.3 % (3-13); PLATELET COUNT 574 10^3/uL (150-450); RED BLOOD COUNT 5.15 10^6/uL (3.72-5.28); RED CELL DISTRIBUTION WIDTH 14.7 % (11.5-14.0); SEGMENTED NEUTROPHILS % (AUTO) 82.1 % (42-78); TOTAL CELLS COUNTED % (AUTO) 100 %; WHITE BLOOD COUNT 15.9 10^3/uL (4.0-10.5)
--- NOTE | 2020-05-17 20:01 | EKG REPORT ---
SEVERITY:- BORDERLINE ECG - SINUS TACHYCARDIA PROBABLE LEFT ATRIAL ABNORMALITY : Confirmed by: Mark To MD 17-May-2020 20:01:13
[2020-05-17 20:12] LABS: ALBUMIN 4.7 g/dL (3.5-5.0); ALKALINE PHOSPHATASE 112 U/L (38-126); ANION GAP 17 (5-19); ASPARTATE AMINO TRANSFERASE 19 U/L (14-36); BILIRUBIN,DIRECT 0.4 mg/dL (0.0-0.4); BILIRUBIN,TOTAL 0.5 mg/dL (0.2-1.3); BLOOD UREA NITROGEN 8 mg/dL (7-20); CALCIUM 10.1 mg/dL (8.4-10.2); CARBON DIOXIDE 28 mmol/L (22-30); CHLORIDE 93 mmol/L (98-107); GLUCOSE 76 mg/dL (75-110); POTASSIUM 3.6 mmol/L (3.6-5.0); TOTAL PROTEIN 8.1 g/dL (6.3-8.2)
[2020-05-17 20:23] LABS: APPEARANCE,URINE CLOUDY; BILIRUBIN,URINE SMALL (NEGATIVE); GLUCOSE, URINE NEGATIVE (NEGATIVE); KETONES,URINE 80 mg/dL (NEGATIVE); LEUKOCYTE ESTERASE,URINE MODERATE (NEGATIVE); NITRITE,URINE NEGATIVE (NEGATIVE); PROTEIN,URINE 100 mg/dL (NEGATIVE); URINE SPECIFIC GRAVITY 1.027
[2020-05-17 20:24] LABS: COLOR,URINE BROWN
[2020-05-17] MEDS ORDERED: MORPHINE SULFATE 10 MG/ML INJ IV ONE (20:43)
[2020-05-17] MEDS ORDERED: PROCHLORPERAZINE EDISYLATE INJ 10 MG/2 ML VIAL IV ONE (22:47)
[2020-05-17] MEDS ORDERED: NORMAL SALINE 1000 ML 1,000 ML IV ONE (22:47)
[2020-05-17] MEDS ORDERED: DIPHENHYDRAMINE HCL 50 MG/ML VIAL IV ONE (22:47)
--- NOTE | 2020-05-17 22:59 | ER Document Report ---
ED GI/ - General Chief Complaint: Nausea/Vomiting Stated Complaint: VOMITTING NEW MEDICATION Time Seen by Provider: 05/17/20 18:35 Primary Care Provider: [facility] [Provider Group] - Follow up as needed [facility] [Provider Group] - Follow up as needed [facility] [Provider Group] - Follow up as needed Mode of Arrival: Ambulatory Information source: Patient Notes: 25-year-old female presented to ED for complaint of abdominal pain nausea vomiting and diarrhea she states she was seen recently in [place] [facility] because her heart rate went up to 160. She states they diagnosed her with a flare of her ulcerative colitis. They started on Cipro and Flagyl. She states since she has been taking the Cipro and Flagyl she has had nausea and vomiting every day. States she cannot keep her medicine down or any food or fluids. Denies any blood in the stool. She does have abdominal tenderness throughout. She has no point tenderness. She does have a hypoactive bowel sounds. She is alert oriented respirations regular nonlabored speaking in full sentences. Constitutional: Negative for fever. HENT: Negative for sore throat. Eyes: Negative for visual changes. Cardiovascular: Negative for chest pain. Respiratory: Negative for shortness of breath. Gastrointestinal: Negative for abdominal pain, vomiting or diarrhea. Genitourinary: Negative for dysuria. Musculoskeletal: Negative for back pain. Skin: Negative for rash. Neurological: Negative for headaches, weakness or numbness. 10 point ROS negative except as marked above and in HPI. VITAL SIGNS: Within normal limits. GENERAL: No acute distress, non-toxic appearance. HEAD: Normal with no signs of head trauma. EYES: PERRLA, EOMI, conjunctiva normal, no discharge. EARS: Hearing grossly intact. NOSE: Normal. THROAT: Oropharynx is normal. NECK: Normal range of motion, no tenderness, supple, no lymphadenopathy, No adenopathy, no JVD. CHEST: Clear breath sounds bilaterally. No wheezes, rales, or rhonchi. CARDIAC: Regular rate and rhythm. S1 and S2, without murmurs, gallops, or rubs. VASCULAR: No Edema. Peripheral pulses normal and equal in all extremities. ABDOMEN: Generalized abdominal pain and tenderness GASTROINTESTINAL: Hyperactive bowel sounds normal GENITOURINARY: Normal, No tenderness LYMPATHTIC: No lymphadenopathy noted. MUSCULOSKELETAL: Good range of motion of all major joints. Extremities without clubbing, cyanosis or edema. NEUROLOGICAL: Alert and oriented x 3. No focal sensory or strength deficits. Speech normal. Follows commands appropriately. PSYCHIATRIC: Normal Affect, judgement and mood. SKIN: Normal appearance with no rashes or lesions. TRAVEL OUTSIDE OF THE [place] IN LAST 30 DAYS: No - HPI Patient complains to provider of: Abdominal pain, Diarrhea, Vomiting Onset: Last week Timing/Duration: Intermittent Quality of pain: Cramping, Sharp Severity at maximum: Severe Severity in ED: Moderate Pain Level: 3 Location: Other - Generalized abdominal pain Vaginal bleeding (Compared to normal period): None Associated symptoms: Diarrhea, Nausea, Vomiting Exacerbated by: Denies Relieved by: Denies Similar symptoms previously: Yes Recently seen / treated by doctor: Yes - Related Data Allergies/Adverse Reactions: hydrocodone Adverse Reaction (Verified 04/24/20 18:47) Home Medications: flagyl. cipro Past Medical History - General Information source: Patient - Social History Smoking Status: Never Smoker Frequency of alcohol use: None Drug Abuse: None Lives with: Family Family History: DM Patient has suicidal ideation: No Patient has homicidal ideation: No - Past Medical History Cardiac Medical History: Reports: None Pulmonary Medical History: Reports: None EENT Medical History: Reports: None Neurological Medical History: Reports: Hx Migraine Endocrine Medical History: Reports: None Renal/ Medical History: Reports: None Malignancy Medical History: Reports: None GI Medical History: Reports: Hx Hiatal Hernia, Hx Ulcerative Colitis Musculoskeletal Medical History: Reports None Skin Medical History: Reports None Psychiatric Medical History: Reports: None Traumatic Medical History: Reports: None Infectious Medical History: Reports: None Past Surgical History: Reports: Hx Cholecystectomy, Hx Oral Surgery, Hx Tonsillectomy - Immunizations Immunizations up to date: Yes Hx Diphtheria, Pertussis, Tetanus Vaccination: Yes Physical Exam - Vital signs Vitals: Temp Pulse Resp BP Pulse Ox 98.6 F 138 H 20 122/91 H 95 05/17/20 18:00 05/17/20 18:00 05/17/20 18:00 05/17/20 18:00 05/17/20 18:00 Course - Re-evaluation Re-evalutation: 05/18/20 09:52 Labs were discussed with Dr. Palmer. Patient has been treated with multiple liters of fluids and with Compazine and Benadryl IV. She was no longer nausea or vomiting. She was discharged home after she was able to keep fluids and me dications down. She was discharged home with prescription for Compazine p.o. to take every 6 hours at least 30 to 45 minutes before her antibiotics. She was given 1 dose of her Cipro and Flagyl in the emergency room. She was instructed to please follow-up with her primary care or return to the ED for any increase in symptoms or not able to keep her food and fluids and antibiotics down. She was written a prescription for 7 days of the Cipro and Flagyl as per her prescription bottle as she stated that all of the pills she has taken she has vomited up and has not kept down. Patient verbalized understanding and agreement with this treatment plan and patient was discharged home. - Vital Signs Vital signs: Temp Pulse Resp BP Pulse Ox 98.6 F 138 H 20 119/81 98 05/17/20 18:00 05/17/20 18:00 05/18/20 01:18 05/18/20 01:18 05/18/20 01:18 - Laboratory Results Result Diagrams: 05/17/20 19:36 05/17/20 19:36 Laboratory Results Interpreted: 05/17/20 05/17/20 05/17/20 19:20 19:36 19:36 WBC 15.9 H MCV 75 L MCH 24.9 L RDW 14.7 H Plt Count 574 H Lymph % (Auto) 10.6 L Absolute Neuts (auto) 13.1 H Seg Neutrophils % 82.1 H Chloride 93 L Est GFR (MDRD) Non-Af 55 L Urine Protein 100 H Urine Ketones 80 H Urine Blood LARGE H Urine Bilirubin SMALL H Urine Urobilinogen 2.0 H Ur Leukocyte Esterase MODERATE H Critical Laboratory Results Reviewed: No Critical Results - Radiology Results Critical Radiology Results Reviewed: No Critical Results Discharge - Discharge Clinical Impression: Exacerbation of ulcerative colitis Qualifiers: Digestive disease complication type: without complication Qualified Code(s): K51.90 - Ulcerative colitis, unspecified, without complications Nausea & vomiting Qualifiers: Vomiting type: unspecified Vomiting Intractability: non-intractable Qualified Code(s): R11.2 - Nausea with vomiting, unspecified Diarrhea Qualifiers: Diarrhea type: unspecified type Qualified Code(s): R19.7 - Diarrhea, unspecified UTI (urinary tract infection) Qualifiers: Urinary tract infection type: site unspecified Hematuria presence: with hematuria Qualified Code(s): N39.0 - Urinary tract infection, site not specified Condition: Stable Disposition: HOME, SELF-CARE Additional Instructions: VOMITING: Vomiting (or nausea without vomiting) can be caused by many other different problems. It can mean that something's wrong with the stomach, such as ulcers or inflammation or the intestinal tract, such as appendicitis. But it can also be a symptom of a problem that has nothing to do with the stomach or intestines. Vomiting is common with severe headaches, earaches, tonsillitis, and kidney infections, etc. We see it with pneumonia or heart attacks. Drugs can cause nausea and vomiting. Many abdominal problems cause vomiting; for example, gallstones, kidney stones, pancreatitis, and intestinal obstruction (blocked bowels). In most cases, curing the vomiting depends on fixing the problem that caused it. For temporary relief, we may use an anti-nausea medicine. For home use, we can prescribe suppositories, chewable pills, pills that dissolve in the mouth, or liquid anti-nausea drugs. If the vomiting seems to be caused by a problem in the stomach, acid-suppressing drugs may be prescribed as well. It's important to avoid dehydration. Sip small amounts of clear liquids (soft drinks, tea, broth, etc) . Try to take fluids frequently even if you are vomiting to prevent dehydration. Take increasing amounts of fluid and when liquids are being consumed successfully, advance to small amounts of bland food (toast, soups, mashed potatoes, etc.) until you are able to resume a regular diet. Avoid aspirin, tobacco, and alcohol. If the vomiting worsens, if the problem that's making you vomit worsens, or if there's evidence of bleeding in the stomach (such as black, tarry stool, or bloody or black vomit), you should return immediately. Also, return if abdominal pain worsens or becomes localized to one area or you develop high fever. Call your doctor if you aren't improved in 24 hours. DIARRHEA, NON-SPECIFIC: Diarrhea means frequent, watery stools. There are many causes. Any problem that keeps the intestinal tract from absorbing water from the stool can lead to diarrhea. A sudden new diarrhea problem is usually caused by a virus, food sensitivity, toxic bacteria, or drugs. In this case, we expect the problem to go away soon. Testing is done only if you seem seriously ill from the diarrhea. If you have chronic diarrhea, or diarrhea that keeps coming back, we need to find out why. Chronic diarrhea can be due to inflammation of the bowels such as Crohn's disease or ulcerative colitis, food sensitivity such as intolerance to lactose or wheat protein, irritable bowel syndrome, and other problems. If your diarrhea is a significant problem but it's not clear why you have it, we'll refer you to a specialist for further testing. During an episode of diarrhea, drink small amounts (two to six ounces) of clear liquids (soft drinks, sport drinks, herb teas, broth, etc). Take fluids frequently to prevent dehydration. It's usually not a problem to take mild anti- diarrhea medication such as Kaopectate or Pepto-Bismol. As the diarrhea eases, advance to small amounts of bland food (mashed potato, toast) for 24 hours. Call the physician if blood appears in your vomit or stool, if vomiting lasts longer than 24 hours, if the abdominal pain worsens or becomes localized to one area, if you develop high fever, or if you become lightheaded and weak. URINARY TRACT INFECTION: Your evaluation indicates that you have a urinary tract infection. This is due to germs growing in the bladder. This is a common problem. This infection usually responds quickly to antibiotics. Your antibiotic should be taken exactly as prescribed. Drink plenty of fluids -- three to four quarts a day. Occasionally, a bladder anesthetic will be prescribed to help stop the feeling of urgency until the antibiotic has a chance to clear the infection. This may cause your urine to be dark orange. Certain urine infections require a culture. If the doctor obtained a culture, the results will be back in two days. You should call to see if a change in treatment is needed. A repeat urinalysis after you finish treatment is often recommended. The physician will let you know if further testing is required. Call the doctor if you develop fever, chills, flank pain, inability to urinate, or blood in the urine. CIPROFLOXACIN: You have been given an antibacterial agent, ciprofloxacin (Cipro). This medicine is not related to the penicillins, sulfas, cephalosporins, or tetracyclines. It is often given to patients who are allergic to these drugs. It has been chosen for you either because other drugs are not appropriate, or because of the nature of your problem. Cipro should not be taken with antacids, as these can decrease its eff ectiveness. It can be taken without regard to meals. CIPRO SHOULD NOT BE TAKEN BY CHILDREN, NURSING WOMEN, OR WOMEN. Although Cipro is usually well-tolerated, common side effects can include nausea and diarrhea. Contact your doctor if you experience any unusual symptoms while on this medication, such as joint pain or swelling, shortness of breath, wheezing, faintness, or hives. Metronidazole Metronidazole (Flagyl) has been prescribed. This medication is used to kill a type of bacteria called anaerobes, and protozoan parasites such as trichomonas and Giardia. Flagyl often causes a metallic taste in the mouth and mild nausea. Do not use alcohol in any form with Flagyl (including alcohol in medication elixirs). Flagyl interacts with alcohol to cause flushing, palpitations, headache, stomach cramps, and vomiting. Do not use Flagyl if you are taking Antabuse (disulfiram). Call the doctor at once if you develop rash, shortness of breath, itching, or lightheadedness. INTRAVENOUS (I V) FLUIDS: As part of your care today, you received intravenous (IV) fluids. IV fluids are administered to patients who are dehydrated or to those who have certain chemical (electrolyte) abnormalities that need correcting. ANTINAUSEA MEDICATION: You have been given a medication to suppress nausea and vomiting. This type of medication can be given as a shot, pill, or suppository. It will usually last for many hours. Pills and shots usually last six to eight hours. For the typical illness, only one or two doses of the medication may be necessary. Mild lightheadedness may occur. This type of medicine can cause drowsiness. Do not drive or operate dangerous machinery while under its influence. Do not mix with alcohol. See your doctor at once if you have muscle spasms or tightness, or uncontrollable motions (particularly of the neck, mouth, or jaw). Persistent vomiting or severe lightheadedness should also be evaluated by the physician. FOLLOW-UP CARE: If you have been referred to a physician for follow-up care, call the physicians office for an appointment as you were instructed or within the next two days. If you experience worsening or a significant change in your symptoms, notify the physician immediately or return to the Emergency Department at any time for re-evaluation. Prescriptions: Prochlorperazine Maleate [Compazine 10 mg Tablet] 10 mg PO Q6HP PRN #20 tablet PRN Reason: Ciprofloxacin HCl [Cipro 500 mg Tablet] 500 mg PO Q12 #14 tablet Metronidazole [Flagyl 500 mg Tablet] 500 mg PO TID #21 tablet Forms: Elevated Blood Pressure Referrals: [facility] [Provider Group] - Follow up as needed [facility] [Provider Group] - Follow up as needed [facility] [Provider Group] - Follow up as needed
[2020-05-18] MEDS ORDERED: NORMAL SALINE 1000 ML 1,000 ML IV ONE (00:05)
[2020-05-18] MEDS ORDERED: METRONIDAZOLE 500 MG TABLET PO ONE (01:21)
[2020-05-18] MEDS ORDERED: CIPROFLOXACIN HCL 500 MG TABLET PO ONE (01:21)
[2020-05-18 01:26] VITALS: BP 119/81
== END 2020-05-18 01:38 | disposition home or self-care (01) ==
LOC: ER 17:38
DX: K51.90 Ulcerative colitis, unspecified, without complications (principal); N39.0 Urinary tract infection, site not specified; R31.9 Hematuria, unspecified; R11.2 Nausea with vomiting, unspecified; R19.7 Diarrhea, unspecified; R10.84 Generalized abdominal pain; R10.817 Generalized abdominal tenderness
CPT/HCPCS: 93005; 99284; 96361 ×2; 96374; 96375; 36415; 87040; 87086; 83605; 83690; 84703; 85025; 87088; 80053; 81001; 93010; J3490 ×2; J1200; J2270; J0780; J2405; J7030 ×2; J7120

== ENCOUNTER → 2020-05-23 | Outpatient (CLI) | payer OTHER ==
[2020-05-23 13:04] LABS: ABSOLUTE EOSINOPHILS # (AUTO) 0.3 10^3/uL (0.0-0.6); ABSOLUTE LYMPHOCYTES (AUTO) 1.4 10^3/uL (0.5-4.7); ABSOLUTE MONOCYTES (AUTO) 0.9 10^3/uL (0.1-1.4); ABSOLUTE NEUT (AUTO) 10.8 10^3/uL (1.7-8.2); BASOPHILS % (AUTO) 0.3 % (0-2); EOSINOPHILS % (AUTO) 2.3 % (0-6); HEMATOCRIT 37.4 % (36.0-47.0); HEMOGLOBIN 12.3 g/dL (12.0-15.5); LYMPHOCYTES % (AUTO) 10.4 % (13-45); MEAN CORPUSCULAR HEMOGLOBIN 24.5 pg (27.0-33.4); MEAN CORPUSCULAR HGB CONC 32.9 g/dL (32.0-36.0); MEAN CORPUSCULAR VOLUME 75 fl (80-97); MONOCYTES % (AUTO) 6.4 % (3-13); RED BLOOD COUNT 5.01 10^6/uL (3.72-5.28); RED CELL DISTRIBUTION WIDTH 15.4 % (11.5-14.0); SEGMENTED NEUTROPHILS % (AUTO) 80.6 % (42-78); TOTAL CELLS COUNTED % (AUTO) 100 %; WHITE BLOOD COUNT 13.5 10^3/uL (4.0-10.5)
[2020-05-23 13:19] LABS: PLATELET COUNT 515 10^3/uL (150-450)
[2020-05-24 14:30] LABS: ANION GAP 14 (5-19); BLOOD UREA NITROGEN 6 mg/dL (7-20); CALCIUM 10.3 mg/dL (8.4-10.2); CARBON DIOXIDE 28 mmol/L (22-30); CHLORIDE 96 mmol/L (98-107); GLUCOSE 115 mg/dL (75-110); POTASSIUM 4.3 mmol/L (3.6-5.0)
== END ==
LOC: CCC 12:12
PROVIDERS: ATTEND Family Medicine
DX: Z13.9 Encounter for screening, unspecified (principal)
CPT/HCPCS: 36415; 80048; 85025